=== PATIENT | female | born 1970 | race African-American/Black ===

== ENCOUNTER 2016-07-09 12:39 | Emergency (ER) | payer BC, OTHER ==
[~2016-07-09 12:39] MED LIST: HORMONE REPLACEMENT
--- NOTE | 2016-07-09 13:21 | RAD ---
Indication chest pain. A single view chest was obtained. No prior imaging of the chest is available. The heart, pulmonary vessels and mediastinum appear normal. The lungs are clear. There is no pleural fluid or pneumothorax and the visualized bony structures appear grossly intact. IMPRESSION: No acute or focal process is seen in the chest
[2016-07-09 13:44] LABS: HEMOGLOBIN ISTAT 13.3 gm/dL; POTASSIUM ISTAT 3.5 mmol/L (3.5-5.0)
[2016-07-09 13:48] VITALS: BP 130/68
--- NOTE | 2016-07-09 13:53 | ED.ADGEN ---
Past History Past Medical History: Hypothyroid Past Surgical History: Hysterectomy, Other Alcohol Use: Rarely Additional Alcohol Information: no alcohol for 7 years per pt recall Drug Use: None Adult General HPI HPI Patient is a 45-year-old female presents emergency department complaining of shoulder pain that spread across her back and into her left shoulder since 7 PM last night. Patient denies any associated symptoms such as nausea, vomiting, diaphoresis, dyspnea. However, she does have a family history of coronary artery disease and became concerned after speaking with her brother. She has had no prehospital intervention for the pain. Review of Systems Review of Systems Constitutional: Denies fever or chills [] Eyes: Denies change in visual acuity, redness, or eye pain [] HENT: Denies nasal congestion or sore throat [] Respiratory: Denies cough or shortness of breath [] Cardiovascular: No additional information not addressed in HPI [] GI: Denies abdominal pain, nausea, vomiting, bloody stools or diarrhea [] : Denies dysuria or hematuria [] Musculoskeletal: Denies back pain or joint pain [] Integument: Denies rash or skin lesions [] Neurologic: Denies headache, focal weakness or sensory changes [] Endocrine: Denies polyuria or polydipsia [] Allergies Allergies Allergies Coded Allergies Type Severity Reaction Last Updated Verified No Known Drug Allergies 01/23/14 No Physical Exam Physical Exam Constitutional: Well developed, well nourished, no acute distress, non-toxic appearance. [] HENT: Normocephalic, atraumatic, bilateral external ears normal, oropharynx moist, no oral exudates, nose normal. [] Eyes: PERRLA, EOMI, conjunctiva normal, no discharge. [] Neck: Normal range of motion, no tenderness, supple, no stridor. [] Cardiovascular:Heart rate regular rhythm, no murmur [] Lungs & Thorax: Bilateral breath sounds clear to auscultation [] Abdomen: Bowel sounds normal, soft, no tenderness, no masses, no pulsatile masses. [] Skin: Warm, dry, no erythema, no rash. [] Back: No tenderness, no CVA tenderness. [] Extremities: No tenderness, no cyanosis, no clubbing, ROM intact, no edema. [] Neurologic: Alert and oriented X 3, normal motor function, normal sensory function, no focal deficits noted. [] Psychologic: Affect normal, judgement normal, mood normal. [] Current Patient Data Vital Signs Vital Signs Date Time Temp Pulse Resp B/P Pulse Ox O2 Delivery O2 Flow Rate FiO2 07/09/16 13:48 68 18 98 07/09/16 12:39 98.2 Room Air Lab Results Laboratory Tests Test 07/09/16 13:28 07/09/16 13:41 POC Troponin I 0.00ng/ml (<0.08) POC Hemoglobin 13.3gm/dL POC Hematocrit 39% POC Sodium 140mmol/L (135-145) POC Potassium 3.5mmol/L (3.5-5.0) POC Chloride 104mmol/L (98-110) POC Total CO2 22mmol/L (23-32) L Anion Gap 19mmol/L (6-14) H POC Blood Urea Nitrogen 9mg/dL (8-26) POC Creatinine 0.6mg/dL (0.5-1.4) Glucose Level 111mg/dL (60-99) H POC Ionized Calcium (Veronica) 1.13mmol/L (1.13-1.32) EKG EKG EKG interpreted by me, normal sinus rhythm,74 beats for minute, no ST segment elevation, normal axis. [] Radiology/Procedures Radiology/Procedures Indication chest pain. A single view chest was obtained. No prior imaging of the chest is available. The heart, pulmonary vessels and mediastinum appear normal. The lungs are clear. There is no pleural fluid or pneumothorax and the visualized bony structures appear grossly intact. IMPRESSION: No acute or focal process is seen in the chest DICTATED AND SIGNED BY: LYDIA GALINDO MD DATE: 07/09/16 1316 CC: DAKOTA GARCIA MD; ANASTASIA TAMEZ APRN ~ [] Course & Med Decision Making Course & Med Decision Making Pertinent Labs and Imaging studies reviewed. (See chart for details) Patient had been in no distress. She has a reassuring workup here. She has been given supportive care instructions as well as follow-up directions. I do believe is a very atypical story for ACS but she was given return precautions [] Final Impression Final Impression Chest pain [] Problems: Dragon Disclaimer Dragon Disclaimer This electronic medical record was generated, in whole or in part, using a voice recognition dictation system. DAKOTA GARCIA MD Jul 09, 2016 13:53
--- NOTE | 2016-07-09 17:51 | EKG ---
[address] [address] Test Date: 2016-07-09 Test Time: 13:04:57 Pat Name: DARRON JACKSON Department: Room: Gender: F Community Engagement Leader: DEWAYNE : 1970 Requested By: DAKOTA GARCIA Order Number: [id number] Reading MD: Measurements Intervals [place] Rate: 74 P: 32 VT: 168 QRS: 52 QRSD: 86 T: 42 QT: 386 QTc: 429 Interpretive Statements SINUS RHYTHM NO SPECIFIC ECG ABNORMALITIES RI6.01 Unconfirmed report No previous ECG available for comparison
== END 2016-07-09 13:52 | disposition home or self-care (01) ==
LOC: ER 12:39
DX: R07.9 Chest pain, unspecified (principal); M25.512 Pain in left shoulder; E03.9 Hypothyroidism, unspecified
CPT/HCPCS: 71010; 80047; 84484; 93005; 99284-25

== ENCOUNTER 2019-05-18 04:04 | Emergency (ER) | payer BC, OTHER ==
[~2019-05-18] VITALS: Ht 167.6 cm; Wt 99.1 kg
--- NOTE | 2019-05-18 04:38 | PHYS DOC ---
Past History Past Medical History: Hypothyroid, Seizure Past Surgical History: Hysterectomy Alcohol Use: None Drug Use: None Adult General Chief Complaint Chief Complaint: URINARY RETENTION HPI HPI 48 year old female presents with urinary retention. The patient woke up about an hour ago and felt like she needed to urinate. She went to the restroom and while she was midstream urinating, she suddenly stopped urinating. She had the feeling that she still needed to urinate, but she was unable to get anything else at. When she wiped she had a small amount of blood. The patient has had a hysterectomy. She still feels like she has bladder fullness, but is unable to urinate. She has not had trouble urinating in the past. She denies recent urinary frequency or dysuria. This all just started suddenly. She denies fever or chills. Review of Systems Review of Systems Constitutional: Denies fever or chills [] Eyes: Denies change in visual acuity, redness, or eye pain [] HENT: Denies nasal congestion or sore throat [] Respiratory: Denies cough or shortness of breath [] Cardiovascular: No additional information not addressed in HPI [] GI: Denies abdominal pain, nausea, vomiting, bloody stools or diarrhea [] : Urinary retention [] Musculoskeletal: Denies back pain or joint pain [] Integument: Denies rash or skin lesions [] Neurologic: Denies headache, focal weakness or sensory changes [] Endocrine: Denies polyuria or polydipsia [] All other systems were reviewed and found to be within normal limits, except as documented in this note. Allergies Allergies Allergies Coded Allergies Type Severity Reaction Last Updated Verified No Known Drug Allergies 01/23/14 No Physical Exam Physical Exam Constitutional: Well developed, obese, well nourished, no acute distress, non- toxic appearance. [] HENT: Normocephalic, atraumatic, bilateral external ears normal, oropharynx moist, no oral exudates, nose normal. [] Eyes: PERRLA, EOMI, conjunctiva normal, no discharge. [] Neck: Normal range of motion, no tenderness, supple, no stridor. [] Cardiovascular:Heart rate regular rhythm, no murmur [] Lungs & Thorax: Bilateral breath sounds clear to auscultation [] Abdomen: Bowel sounds normal, soft, no tenderness, no masses, no pulsatile masses. [] Skin: Warm, dry, no erythema, no rash. [] Back: No tenderness, no CVA tenderness. [] Extremities: No tenderness, no cyanosis, no clubbing, ROM intact, no edema. [] Neurologic: Alert and oriented X 3, normal motor function, normal sensory function, no focal deficits noted. [] Psychologic: Affect normal, judgement normal, mood normal. [] Current Patient Data Vital Signs Vital Signs Date Time Temp Pulse Resp B/P (MAP) Pulse Ox O2 Delivery O2 Flow Rate FiO2 05/18/19 04:09 97.5 62 16 108/78 (88) 100 Room Air EKG EKG [] Radiology/Procedures Radiology/Procedures [] Impressions: CT abdomen pelvis with contrast dated 05/18/2019. No comparison available. CLINICAL INDICATION: Blood in urine. TECHNIQUE: Contiguous axial imaging the M pelvis performed after the intravenous administration of 75 cc Omnipaque 300. One or more of the following individualized dose reduction techniques were utilized for this examination: 1. Automated exposure control 2. Adjustment of the mA and/or kV according to patient size 3. Use of iterative reconstruction technique. FINDINGS: Limited images of lung bases are clear. Heart size within normal limits. No pleural or pericardial effusion. There is a large heterogeneous mass involving the right lobe liver that measures up to 10.8 cm maximum dimension. There is a suggestion of peripheral nodular enhancement with possible central scar. The liver is otherwise homogeneous. No biliary ductal dilatation. Gallbladder unremarkable. The spleen is normal in size. Pancreas, adrenal glands and kidneys are unremarkable. No hydronephrosis. Unopacified GI tract normal in caliber and contour. No focal bowel wall thickening. Posterior changes of the stomach. The appendix is normal in caliber. No ascites or lymphadenopathy. Abdominal aorta normal in caliber. Images of pelvis show nondistended urinary bladder. There is diffuse bladder wall thickening. No free fluid or lymphadenopathy. Uterus is surgically absent. Bone windows show no acute findings. Mild multilevel spondylosis. IMPRESSION: 1. No acute abnormality of abdomen or pelvis. Normal appendix. 2. There is a large mass filling the right lobe liver measures up to 10.8 cm in size and shows some peripheral nodular enhancement. This likely represents a large cavernous hemangioma, although other lesions are not excluded. Suggest an MRI with and without contrast for better evaluation. 3. Mild diffuse wall thickening of the urinary bladder, nonspecific. Consider acute or chronic cystitis. Electronically signed by: Elie Sher MD (05/18/2019 5:44 AM) [id number] DICTATED AND SIGNED BY: ELIE SHER MD DATE: 05/18/19 0544 CC: GREYSON FOREMAN DO; CAMMIE WALKER ~ Course & Med Decision Making Course & Med Decision Making Pertinent Labs and Imaging studies reviewed. (See chart for details) Patient's labs are unremarkable. Her urinalysis has too much blood to get an accurate differential. There are many red blood cells as well as 11-[address] scan of the abdomen and pelvis shows large possible hemangioma 10 cm liver it also shows some diffuse wall thickening of the bladder suggestive of cystitis. See official read for details. I will treat the patient for urinary tract infection with 1 g of Rocephin in the ED followed by 7 more days of Keflex. I have advised that she follow up with her primary care physician and consider urology consult. She needs to ensure that her hematuria resolves completely. She is stable for discharge at this time. [] Dragon Disclaimer Dragon Disclaimer This electronic medical record was generated, in whole or in part, using a voice recognition dictation system. Departure Departure: Impression: Primary Impression: Urinary tract infection Additional Impression: Liver mass, right lobe Disposition: 01 HOME, SELF-CARE Condition: STABLE Referrals: CAMMIE WALKER (PCP) Patient Instructions: Urinary Tract Infection, [id number] Scripts Cephalexin (KEFLEX) 500 Mg Capsule 1 CAP PO TID for UTI for 7 Days, #21 CAP 0 Refills Prov: GREYSON FOREMAN DO 05/18/19 Problem Qualifiers Primary Impression: Urinary tract infection Urinary tract infection type: acute cystitis Hematuria presence: with hematuria Qualified Codes: N30.01 - Acute cystitis with hematuria GREYSON FOREMAN DO May 18, 2019 04:38
[2019-05-18] MEDS ORDERED: IV NORMAL SALINE 1,000ML 1,000 ML IV ONE (05:00)
[2019-05-18 05:05] LABS: CLARITY,URINE BLOODY; COLOR,URINE RED
[2019-05-18 05:08] LABS: BACTERIA,URINE FEW /HPF (0-FEW); RBC,URINE TNTC /HPF (0-2)
[2019-05-18 05:15] LABS: BASO % 1 % (0-3); EOS % 0 % (0-3); HEMATOCRIT 39.4 % (36.0-47.0); HEMOGLOBIN 12.4 g/dL (12.0-15.5); LYMPH % 26 % (24-48); MEAN CORPUSCULAR HEMOGLOBIN 28 pg (25-35); MEAN CORPUSCULAR HGB CONC 32 g/dL (31-37); MEAN CORPUSCULAR VOLUME 88 fL (79-100); MONO # 0.4 x10^3/uL (0.0-1.1); MONO % 5 % (0-9); NEUT # 5.2 x10^3uL (1.8-7.7); NEUT % 68 % (31-73); PLATELET COUNT 250 x10^3/uL (140-400); RED BLOOD COUNT 4.47 x10^6/uL (3.50-5.40); RED CELL DISTRIBUTION WIDTH 13.6 % (11.5-14.5); WHITE BLOOD COUNT 7.7 x10^3/uL (4.0-11.0)
[2019-05-18] MEDS ORDERED: IOHEXOL 300 MG/ML 75 ML VIAL. IV ONE (05:15)
[2019-05-18] MEDS ORDERED: CONTRAST GIVEN MC PRN (05:15)
[2019-05-18 05:17] LABS: ANION GAP 8 (6-14); BLOOD UREA NITROGEN 14 mg/dL (7-20); BUN/CREATININE RATIO 16 (6-20); CALCIUM 8.5 mg/dL (8.5-10.1); CARBON DIOXIDE 30 mmol/L (21-32); CHLORIDE 107 mmol/L (98-107); CREATININE 0.9 mg/dL (0.6-1.0); GFR 80.2; GLUCOSE 110 mg/dL (70-99); POTASSIUM 3.9 mmol/L (3.5-5.1); SODIUM 145 mmol/L (136-145)
[2019-05-18 05:23] LABS: ALBUMIN 3.3 g/dL (3.4-5.0); ALBUMIN/GLOBULIN RATIO 0.9 (1.0-1.7); ALK PHOS 76 U/L (46-116); ALT (SGPT) 23 U/L (14-59); AST (SGOT) 28 U/L (15-37); TOTAL PROTEIN 6.9 g/dL (6.4-8.2)
[2019-05-18 05:25] LABS: TOTAL BILIRUBIN < 0.1 mg/dL (0.2-1.0)
--- NOTE | 2019-05-18 05:47 | RAD ---
CT abdomen pelvis with contrast dated 05/18/2019. No comparison available. CLINICAL INDICATION: Blood in urine. TECHNIQUE: Contiguous axial imaging the M pelvis performed after the intravenous administration of 75 cc Omnipaque 300. One or more of the following individualized dose reduction techniques were utilized for this examination: 1. Automated exposure control 2. Adjustment of the mA and/or kV according to patient size 3. Use of iterative reconstruction technique. FINDINGS: Limited images of lung bases are clear. Heart size within normal limits. No pleural or pericardial effusion. There is a large heterogeneous mass involving the right lobe liver that measures up to 10.8 cm maximum dimension. There is a suggestion of peripheral nodular enhancement with possible central scar. The liver is otherwise homogeneous. No biliary ductal dilatation. Gallbladder unremarkable. The spleen is normal in size. Pancreas, adrenal glands and kidneys are unremarkable. No hydronephrosis. Unopacified GI tract normal in caliber and contour. No focal bowel wall thickening. Posterior changes of the stomach. The appendix is normal in caliber. No ascites or lymphadenopathy. Abdominal aorta normal in caliber. Images of pelvis show nondistended urinary bladder. There is diffuse bladder wall thickening. No free fluid or lymphadenopathy. Uterus is surgically absent. Bone windows show no acute findings. Mild multilevel spondylosis. IMPRESSION: 1. No acute abnormality of abdomen or pelvis. Normal appendix. 2. There is a large mass filling the right lobe liver measures up to 10.8 cm in size and shows some peripheral nodular enhancement. This likely represents a large cavernous hemangioma, although other lesions are not excluded. Suggest an MRI with and without contrast for better evaluation. 3. Mild diffuse wall thickening of the urinary bladder, nonspecific. Consider acute or chronic cystitis. Electronically signed by: Nicola Sher MD (05/18/2019 5:44 AM) [id number]
[2019-05-18] MEDS ORDERED: CEPH-264 PO (06:00)
[2019-05-18] MEDS ORDERED: IV NORMAL SALINE 50ML 50 ML ONE (06:05)
[2019-05-18] MEDS ORDERED: cefTRIAXone SODIUM 1 GM VIAL ONE (06:05)
[2019-05-18 06:44] VITALS: BP 139/84
== END 2019-05-18 06:49 | disposition home or self-care (01) ==
LOC: ER 04:04
DX: N30.01 Acute cystitis with hematuria (principal); R16.0 Hepatomegaly, not elsewhere classified; E03.9 Hypothyroidism, unspecified; Z90.710 Acquired absence of both cervix and uterus
CPT/HCPCS: 36415; 74177; 80053; 81001; 85025; 87086; 96365; 99285; J0696; Q9967; J7030

== ENCOUNTER → 2019-09-21 | Outpatient (CLI) | payer BC, OTHER ==
[~2019-09-21] MED LIST changes: +CEPH-264 PO
[2019-09-21 12:16] LABS: BASO % 0 % (0-3); EOS % 1 % (0-3); HEMATOCRIT 39.7 % (36.0-47.0); HEMOGLOBIN 12.8 g/dL (12.0-15.5); LYMPH # 1.7 x10^3/uL (1.0-4.8); LYMPH % 43 % (24-48); MEAN CORPUSCULAR HEMOGLOBIN 28 pg (25-35); MEAN CORPUSCULAR HGB CONC 32 g/dL (31-37); MEAN CORPUSCULAR VOLUME 88 fL (79-100); MONO # 0.2 x10^3/uL (0.0-1.1); MONO % 6 % (0-9); NEUT # 1.9 x10^3uL (1.8-7.7); NEUT % 50 % (31-73); PLATELET COUNT 257 x10^3/uL (140-400); WHITE BLOOD COUNT 3.9 x10^3/uL (4.0-11.0)
[2019-09-21 12:27] LABS: ALBUMIN 3.5 g/dL (3.4-5.0); ALBUMIN/GLOBULIN RATIO 0.9 (1.0-1.7); CREATININE 0.9 mg/dL (0.6-1.0); GFR 79.9; POTASSIUM 4.2 mmol/L (3.5-5.1); TOTAL BILIRUBIN 0.2 mg/dL (0.2-1.0); TOTAL PROTEIN 7.4 g/dL (6.4-8.2)
[2019-09-22 00:07] LABS: CALCIUM PTH 9.6 mg/dL (8.7-10.2); CREATININE PTH 0.78 mg/dL (0.57-1.00); HEMOGLOBIN A1C 5.5 % (4.8-5.6); PTH INTACT 67 pg/mL (15-65)
== END | disposition home or self-care (01) ==
LOC: LAB 10:28
PROVIDERS: ATTEND Nurse Practitioner
DX: K91.2 Postsurgical malabsorption, not elsewhere classified (principal); Z90.3 Acquired absence of stomach [part of]
CPT/HCPCS: 36415; 80053; 80061; 82306; 82607; 83036; 83540; 83550; 83735; 83970; 84425; 84630; 85025

== ENCOUNTER → 2020-01-15 | Outpatient (CLI) | payer BC, OTHER ==
--- NOTE | 2020-01-15 09:19 | RAD ---
HIP RIGHT 2 VIEW DATE: 01/15/2020 12:00 AM INDICATION: LOW BACK AND RIGHT HIP PAIN COMPARISON: None. FINDINGS: Bones: There is no evidence of acute fracture or dislocation. Joints: The joint spaces are normal. Miscellaneous: Pelvic phleboliths IMPRESSION: No acute osseous abnormality Electronically signed by: Irineo Griffith MD (01/15/2020 9:16 AM) [id number]
--- NOTE | 2020-01-15 09:21 | RAD ---
LUMBAR SPINE MIN 4V History: Low back pain, right hip pain Comparison: None. Findings: 5 views of the lumbar spine are submitted. Lumbar vertebral body stature and AP alignment are maintained. There is moderate degenerative disc disease at L3-4, also spondylosis at this level. No acute osseous abnormality is identified by radiographs. There is variable retained stool in the visualized colon. There are likely phleboliths in the pelvis bilaterally. Impression: 1. There is L3-4 degenerative disc disease and spondylosis. Electronically signed by: Irineo Perry MD (01/15/2020 9:18 AM) [facility]
== END ==
LOC: PMG 08:31
PROVIDERS: ATTEND Physician Assistant
DX: M51.36 Other intervertebral disc degeneration, lumbar region (principal); M47.816 Spondylosis without myelopathy or radiculopathy, lumbar region; M25.551 Pain in right hip
CPT/HCPCS: 72110; 73502

== ENCOUNTER 2021-03-28 20:57 | Emergency (ER) | payer BC, OTHER ==
[~2021-03-28] VITALS: Ht 167.6 cm; Wt 104.8 kg
--- NOTE | 2021-03-28 22:34 | RAD ---
Study: XR CHEST 1V Indication: Shortness of breath. Comparison: 07/09/2016 Findings: The cardiomediastinal silhouette and osito are within normal limits. No localized airspace opacity, pl eural effusion or pneumothorax. Surgical clips project over the right upper quadrant. Impression: No acute radiographic abnormality of the chest. No relevant change from the 07/09/2020 comparison. Electronically signed by: THAI HERBERT MD (03/28/2021 10:32 PM) [facility]
[2021-03-28 22:50] VITALS: BP 115/79
--- NOTE | 2021-03-28 22:55 | PHYS DOC ---
Past History Past Medical History: Hypothyroid, Seizure Past Surgical History: Hysterectomy Alcohol Use: None Drug Use: None General Adult EDM: Chief Complaint: FLU SYMPTOM HPI: HPI: 50-year-old female presents with Covid symptoms and a positive Covid test at home. She started of symptoms 6 days ago. The patient also got her booster around the same time and she thought this was just side effect from the blister but it has not gotten better. She has fatigue, body aches. No fever at home. Review of Systems: Review of Systems: Constitutional: Denies fever or chills. Body aches, fatigue Eyes: Denies change in visual acuity HENT: Denies nasal congestion or sore throat Respiratory: Denies cough or shortness of breath Cardiovascular: Denies chest pain or edema GI: Denies abdominal pain, nausea, vomiting, bloody stools or diarrhea : Denies dysuria Musculoskeletal: Denies back pain or joint pain Integument: Denies rash Neurologic: Denies headache, focal weakness or sensory changes Endocrine: Denies polyuria or polydipsia Lymphatic: Denies swollen glands Psychiatric: Denies depression or anxiety Allergies: Allergies: Allergies Coded Allergies Type Severity Reaction Last Updated Verified No Known Drug Allergies 03/28/21 No Physical Exam: PE: Constitutional: Well developed, well nourished, obese, no acute distress, non- toxic appearance. [] HENT: Normocephalic, atraumatic, bilateral external ears normal, oropharynx moist, no oral exudates, nose normal. [] Eyes: PERRLA, EOMI, conjunctiva normal, no discharge. [] Neck: Normal range of motion, no tenderness, supple, no stridor. [] Cardiovascular: Heart rate regular rhythm, no murmur [] Lungs & Thorax: Bilateral breath sounds clear to auscultation [] Abdomen: Bowel sounds normal, soft, no tenderness, no masses, no pulsatile masses. [] Skin: Warm, dry, no erythema, no rash. [] Back: No tenderness, no CVA tenderness. [] Extremities: No tenderness, no cyanosis, no clubbing, ROM intact, no edema. [] Neurologic: Alert and oriented X 3, normal motor function, normal sensory function, no focal deficits noted. [] Psychologic: Affect normal, judgement normal, mood normal. [] EKG: EKG: [] Radiology/Procedures: Radiology/Procedures: [] Impressions: Study: XR CHEST 1V Indication: Shortness of breath. Comparison: 07/09/2016 Findings: The cardiomediastinal silhouette and osito are within normal limits. No localized airspace opacity, pleural effusion or pneumothorax. Surgical clips project over the right upper quadrant. Impression: No acute radiographic abnormality of the chest. No relevant change from the 07/09/2020 comparison. Electronically signed by: THAI HERBERT MD (03/28/2021 10:32 PM) [facility] DICTATED AND SIGNED BY: THAI HERBERT MD DATE: 03/28/212229 CC: EMERGENCY,DEPARTMENT; CAMMIE WALKER; AGUSTÍN MARINO ~MTH0 0 Heart Score: C/O Chest Pain: N/A Risk Factors: Risk Factors: DM, Current or recent (<one month) smoker, HTN, HLP, family history of CAD, obesity. Risk Scores: Score 0 - 3: 2.5% MACE over next 6 weeks - Discharge Home Score 4 - 6: 20.3% MACE over next 6 weeks - Admit for Clinical Observation Score 7 - 10: 72.7% MACE over next 6 weeks - Early Invasive Strategies Course & Med Decision Making: Course & Med Decision Making Pertinent Labs and Imaging studies reviewed. (See chart for details) We have tested the patient for influenza and COVID-19. Since she had a positive home test this is highly likely to be COVID-19. I advised supportive care and isolation. She is stable for discharge at this time. [] Adolph Disclaimer: Adolph Disclaimer: This electronic medical record was generated, in whole or in part, using a voice recognition dictation system. Departure Departure: Impression: Primary Impression: COVID-19 Disposition: HOME / SELF CARE / HOMELESS Condition: STABLE Referrals: CAMMIE WALKER (PCP) Patient Instructions: Viral Syndrome Additional Instructions: You have been tested for or diagnosed with COVID-19. It is an infection caused by a new type of coronavirus. COVID-19 will cause cold-like or mild flu symptoms in most. It can cause more severe symptoms like problems breathing in some. There is no treatment for COVID-19. The body will clear the infection over time. Self-care will help to ease discomfort. Steps to Take: Self-Care Rest as needed. Healthy habits may help you feel better. Steps include: Choose healthy foods including fruits and vegetables. Drink water throughout the day. Get plenty of sleep each night. If you smoke, try to quit. It may ease breathing. Avoid alcohol. Keep Others Healthy The virus can spread to others. Droplets are released every time you sneeze or cough. The droplets can get into the mouth, nose, or eyes of people near you and lead to infection. To lower the chances of spreading COVID-19 to others: Stay at home until your doctor has said it is safe to leave. If you tested positive this will mean staying isolated until both of the following are true: At least 7 days have passed since the start of illness. You are free of fever for at least 72 hours without the use of medicine. During this time: - Avoid public areas, events, or transportation. Do not return to work or school until your doctor has said it is safe to do so. - Call ahead if you need to go to a medical center. Let them know you may have COVID-19. It will help them guide you where to go. They may also ask you to wear a facemask when you come to the office. - If you call for emergency medical services, let them know you may have COVID- 19. While at home: - Try to avoid close contact with others. Stay about 6 feet away. - If possible, spend most of your time in a separate room from others. - Use a face mask if you will be in close contact with others such as sharing a room or vehicle. - Have someone wipe down common surfaces in the home. Use household title i paraprofessional every day on areas like doorknobs, counters, or sinks. - Cough or sneeze into a tissue. Throw the tissue away right after use. If a tissue is not available, cough or sneeze into your elbow. - Wash your hands often. Wash them after sneezing or coughing. Use soap and water and wash for at least 20 seconds. Alcohol based hand tank car cleaner can be used if soap and water is not available. - Do not prepare food for others. Avoid sharing personal items like forks, spoons, or toothbrushes. - Avoid close contact with pets while you are sick. There is no evidence of the virus passing to pets. This is a safety step until more is known about this virus. Isolation can be frustrating. Social interaction can help. Keep in touch with friends and family through phone and tech options. You can still interact with others in your home, just keep a safe distance of about 6 feet. Follow-up: Your doctors office will check in with you to see if there are any changes in your health. You may be asked to keep track of symptoms to share with them. They will also let you know when you are clear to be in public again. Problems to Look Out For: Contact your doctor if your recovery is not going as you expect. Get emergency care if you have problems such as: - Trouble breathing - Nonstop chest pain or pressure - Changes in awareness, confusion, or problems waking - Lips or face have bluish color - Worsening of symptoms If you think you have an emergency, call for emergency medical services right away. As taken from [facility] GREYSON FOREMAN DO Mar 28, 2021 22:55
[2021-03-28 23:33] LABS: INFLUENZA A PATIENT NEGATIVE (NEGATIVE); INFLUENZA B PATIENT NEGATIVE (NEGATIVE)
== END 2021-03-28 23:28 | disposition home or self-care (01) ==
LOC: ER 20:57
DX: U07.1 COVID-19 (principal); E03.9 Hypothyroidism, unspecified
CPT/HCPCS: 71045; 87426; 87804; 99284